=== PATIENT | male | born 1990 | race Caucasian/White ===

== ENCOUNTER 2020-07-05 16:52 | Emergency (ER) | payer OTHER ==
[~2020-07-05] VITALS: Ht 177.8 cm; Wt 68.2 kg
[2020-07-05 21:03] LABS: STREP SCREEN NEGATIVE
[2020-07-05 22:44] VITALS: BP 136/72; PULSE 80; TEMP 98.1
== END 2020-07-05 23:12 | disposition home or self-care (01) ==
LOC: COL.ER 16:52
PROVIDERS: Nurse Practitioner Primary Care
DX: J06.9 Acute upper respiratory infection, unspecified (principal); Z20.822 Contact with and (suspected) exposure to COVID-19